=== PATIENT | male | born 1945 | race Caucasian/White ===

== ENCOUNTER 2020-09-29 18:46 | Inpatient (IN) | payer BC ==
[~2020-09-29] VITALS: Ht 175.3 cm; Wt 103.9 kg
--- NOTE | 2020-09-29 19:00 | NUR ---
Patient BIB EMS from facility SOB 91 % RA moved to room 8 place on monitor ,ekg .lab erin kapoor .
--- NOTE | 2020-09-29 19:12 | NUR ---
MOVE SHEET SUBMITTED.
--- NOTE | 2020-09-29 19:15 | NUR ---
TOOK OVER PT CARE.COOLING MEASURES INITIATED. PT ON 2L NC SAT 98%. WILL MEDICATE PT AND REASSES VITALS.
--- NOTE | 2020-09-29 19:19 | NUR ---
Report given to Kelly NOVAK
[2020-09-29] MEDS ORDERED: SERT25TA PO (19:23)
[2020-09-29] MEDS ORDERED: FERR325T23 PO (19:23)
[2020-09-29] MEDS ORDERED: DOCU-141 PO (19:23)
[2020-09-29] MEDS ORDERED: PANT40TA2 PO (19:23)
[2020-09-29] MEDS ORDERED: ATOR40TA PO (19:23)
[2020-09-29] MEDS ORDERED: MYRBETRIQ PO (19:23)
[2020-09-29] MEDS ORDERED: ASPI-1169 PO (19:23)
[2020-09-29] MEDS ORDERED: LACT1CAP71 PO (19:23)
[2020-09-29 19:24] LABS: BASOPHILS % (AUTO) 0.5 % (0.0-2.0); EOSINOPHILS % (AUTO) 0.1 % (0.0-6.0); HEMATOCRIT 37 % (39-51); HEMOGLOBIN 12.4 g/dL (13.5-17.5); LYMPHOCYTES # (AUTO) 0.5 /CMM (0.8-4.8); LYMPHOCYTES % (AUTO) 7.4 % (20.0-44.0); MEAN CORPUSCULAR HGB CONC 33 g/dl (31.0-36.0); MEAN CORPUSCULAR VOLUME 97 fL (80-96); MONOCYTES # (AUTO) 0.3 /CMM (0.1-1.30); MONOCYTES % (AUTO) 4.5 % (2.0-12.0); NEUTROPHILS # (AUTO) 6.5 /CMM (1.8-8.9); NEUTROPHILS % (AUTO) 87.5 % (43.0-81.0); PLATELET COUNT (AUTO) 109 /CMM (150-450); RED BLOOD CELL COUNT(AUTO) 3.83 MIL/uL (4.5-6.0); WHITE BLOOD COUNT (AUTO) 7.4 K/uL (4.3-11.0)
[2020-09-29] MEDS ORDERED: CEFTRIAXONE 1GM BAG (ER ONLY) 50 ML IV ONE (19:28)
[2020-09-29] MEDS ORDERED: KETOROLAC TROMETHAMINE 15 MG/ML VIAL ONE (19:28)
[2020-09-29] MEDS ORDERED: IV NS 0.9% 1,000 ML IV ONE (19:30)
[2020-09-29] MEDS ORDERED: ACETAMINOPHEN 325 MG TABLET PO ONE (19:30)
[2020-09-29] MEDS ORDERED: AZITHROMYCIN 500 MG in IV D5W 250 ML IV SCH (19:30)
[2020-09-29] MEDS ORDERED: CEFTRIAXONE 1 G in IV D5W 50 ML IV ONE (19:30)
[2020-09-29] MEDS ORDERED: KETOROLAC TROMETHAMINE INJ 30 MG/ML VIAL IV ONE (19:30)
[2020-09-29 19:33] LABS: CALCIUM, SERUM 8.5 mg/dL (8.5-10.1); CARBON DIOXIDE 25 mmol/L (21-32); CHLORIDE 101 mmol/L (98-107); CREATININE 1.3 mg/dL (0.6-1.3); GLUCOSE 127 mg/dL (74-106); POTASSIUM 3.6 mmol/L (3.5-5.1); SODIUM SERUM 138 mmol/L (136-145); UREA NITROGEN, BLOOD 26 mg/dL (7-18)
[2020-09-29 19:46] LABS: ALANINE AMINOTRANSFERASE 23 U/L (12-78); ALBUMIN 3.6 g/dL (3.4-5.0); ALKALINE PHOSPHATASE 82 U/L (46-116); ASPARTATE AMINOTRANSFERASE 32 U/L (15-37); B-TYPE NATRIURETIC PEPTIDE 360 PG/ML (0-125); BILIRUBIN,TOTAL 1.2 mg/dL (0.2-1.0); TOTAL PROTEIN, SERUM 7.6 g/dL (6.4-8.2)
[2020-09-29 19:56] LABS: D-DIMER 0.86 mg/L(FEU (0.17-0.50)
[2020-09-29] MEDS ORDERED: AZITHROMYCIN 500 MG VIAL ONE (19:56)
[2020-09-29 20:16] LABS: CREATINE KINASE, TOTAL 189 U/L (39-308); FERRITIN 1639 ng/mL (8-388)
[2020-09-29 20:18] LABS: C-REACTIVE PROTEIN 8.7 mg/dL (0.0-0.9)
--- NOTE | 2020-09-29 20:40 | NUR ---
REC'D POS COVID RESULTS
[2020-09-29] MEDS ORDERED: LIDOCAINE 2% JEL UROJET 10 ML MM ONE (20:41)
[2020-09-29] MEDS ORDERED: DEXAMETHASONE SOD PHOSPHATE 10 MG/ML VIAL IV STA (21:01)
[2020-09-29 21:06] LABS: BILIRUBIN,URINE Negative (NEGATIVE); COLOR,URINE YELLOW (YELLOW); LEUKOCYTE ESTERASE ,URINE Negative (NEGATIVE); NITRITE, URINE Negative (NEGATIVE); PH,URINE 5.5 (5.0-8.0); PROTEIN,URINE Trace mg/dl (NEGATIVE); UGLUCOSE Negative (NEGATIVE); UROBILINOGEN,URINE 0.2 EU/dL (0.2)
--- NOTE | 2020-09-29 21:16 | NUR ---
PHONE NUMBER FOR FAMILY IS . (DR. FRANCESCO DINERO)
--- NOTE | 2020-09-29 21:18 | NUR ---
PT REMAINS ON MONITOR AND PULSE OX. TEMP NOTED TO BE 98.9, VITALS STABLE. WILL CONTINUE TO MONITOR.
[2020-09-29 21:32] LABS: BACTERIA,URINE Many /HPF (None Seen); RBC,URINE 0-2 /HPF (0-2); SQUAMOUS EPITHELIAL CELL,UR Few /HPF (None Seen); WBC,URINE 0-2 /HPF (0-3)
[2020-09-29] MEDS ORDERED: DEXAMETHASONE SOD PHOSPHATE 10 MG/ML VIAL ONE (21:32)
[2020-09-29] MEDS ORDERED: ONDANSETRON HCL/PF 4 MG/2 ML VIAL IVP PRN (22:00)
[2020-09-29] MEDS ORDERED: Z GUARD REMEDY 2 OZ OINT TP PRN (22:00)
[2020-09-29] MEDS ORDERED: ZOLPIDEM TARTRATE 5 MG TABLET PO PRN (22:00)
[2020-09-29] MEDS ORDERED: HYDROCODONE/APAP 5/325MG TABLET PO PRN (22:00)
[2020-09-29] MEDS ORDERED: MAG HYDROX/AL HYDROX/SIMETH 30 ML UDC PO PRN (22:00)
[2020-09-29] MEDS ORDERED: MAGNESIUM HYDROXIDE 30 ML UDC PO PRN (22:00)
[2020-09-29] MEDS ORDERED: ACETAMINOPHEN 325 MG TABLET PO PRN (22:00)
[2020-09-29] MEDS ORDERED: ENOXAPARIN SODIUM 40 MG/0.4 ML DISP.SYRIN SQ ONE (22:35)
[2020-09-29] MEDS ORDERED: ATORVASTATIN 40 MG TABLET ONE (22:35)
[2020-09-29] MEDS: ENOXAPARIN SODIUM 40 MG/0.4 ML DISP.SYRIN SQ SCH (22:40)
[2020-09-29] MEDS: ATORVASTATIN 40 MG TABLET PO SCH (22:42)
--- NOTE | 2020-09-30 04:54 | NUR ---
BED ASSIGNMENT 203
--- NOTE | 2020-09-30 05:32 | NUR ---
SPOKE TO NIRANJAN (NEPHEW) REGARDING PLAN OF CARE.
--- NOTE | 2020-09-30 05:32 | NUR ---
REPORT GIVEN TO GOLD NOVAK FOR YNES.
[2020-09-30 05:43] LABS: BASOPHILS % (AUTO) 0.1 % (0.0-2.0); HEMATOCRIT 38 % (39-51); HEMOGLOBIN 12.3 g/dL (13.5-17.5); LYMPHOCYTES # (AUTO) 0.5 /CMM (0.8-4.8); LYMPHOCYTES % (AUTO) 6.4 % (20.0-44.0); MEAN CORPUSCULAR HGB CONC 33 g/dl (31.0-36.0); MEAN CORPUSCULAR VOLUME 97 fL (80-96); MONOCYTES # (AUTO) 0.3 /CMM (0.1-1.30); MONOCYTES % (AUTO) 3.9 % (2.0-12.0); NEUTROPHILS # (AUTO) 6.5 /CMM (1.8-8.9); NEUTROPHILS % (AUTO) 89.6 % (43.0-81.0); PLATELET COUNT (AUTO) 98 /CMM (150-450); RED BLOOD CELL COUNT(AUTO) 3.88 MIL/uL (4.5-6.0); WHITE BLOOD COUNT (AUTO) 7.3 K/uL (4.3-11.0)
--- NOTE | 2020-09-30 05:58 | NUR ---
PT TRANSFERED PER ACLS PROTOCOL
[2020-09-30 06:07] LABS: CREATININE 1.3 mg/dL (0.6-1.3); MAGNESIUM 2.5 mg/dL (1.8-2.4); PHOSPHORUS 5.9 mg/dL (2.5-4.9); POTASSIUM 4.1 mmol/L (3.5-5.1)
[2020-09-30 06:15] VITALS: BP 137/78
--- NOTE | 2020-09-30 06:20 | NUR ---
corn cutterprogramming specialist notes Received Pt from KISHORE Manrique. Pt arrived at the unit with a gurney and ACLS protocol. Pt is alert and orientedX3. Respiration on 3 L NC with O2 sat is 98%. Noted Pt's wheezing and grunting. RT at the bedside. IV site at LFA# 18 is clean, intact and flushes well. Tele monitor SR Hr at 69 bpm. VS is stable. Afebrile. Skin assessment is done and performed. Pt skin is intact. Pt's belonging was checked, signed by Pt and placed at Pt's chart. Admission orders received from Dr. Arthur. Safety precautions is maintained. Bed at low position, brakes locked, side rails upX2 and call light within reach. Will endorse to morning nurse for YNES.
--- NOTE | 2020-09-30 06:25 | NUR ---
phone circuit operator notes Informed and notified MD regarding Pt's wheezing and grunting loudly. Rt at the bedside. MD ordered albuterol 2.5 mg/neb/Q4 hr/ RT/PRN and Ipratropium neb 0.5 mg/neb/prn/ Q 4hr. Order carried out.
[2020-09-30] MEDS ORDERED: ALBUTEROL FS 2.5 MG/0.5 ML VIAL.NEB NEB PRN (06:30)
[2020-09-30] MEDS ORDERED: IPRATROPIUM NEB FS 0.5 MG/2.5 ML AMPUL.NEB NEB PRN (06:30)
--- NOTE | 2020-09-30 06:46 | NUR ---
digital designer notes Rt at the bedside giving treatment.
--- NOTE | 2020-09-30 07:03 | NUR ---
DUST COLLECTOR OPERATOR OPENING NOTE RECEIVED PT AWAKE IN BED AT THIS TIME. AOX3. PT ABLE TO VERBALIZE NEEDS. NO SOB NOTED, NO S/S OF ANY APPARENT DISTRESS NOTED, NO S/O PAIN AT THIS TIME. PT NOTED ON EXTERNAL TELE NURSE OBGYN, READING SR 67. PT NOTED ON OXYGEN @4LPM VIA NC. IV ACCESS NOTED IN LFA G#18 SL, INTACT, PATENT AND FLUSHING WELL. ASPIRATIONS AND SAFETY PRECAUTIONS IN PLACE AND MAINTAINED AT ALL TIMES. BED IN LOWEST LOCKED POSITION, SIDE RAILS UP, HOB ELEVATED, TABLE AND CALL LIGHT WITHIN REACH. WILL CONTINUE TO MONITOR.
--- NOTE | 2020-09-30 07:47 | NUR ---
loom fixer apprentice notes ordered ABG. Ordered carried out.
--- NOTE | 2020-09-30 07:50 | NUR ---
manager inventory management notes Pt is on 4 L NC with O2 sat is 95%. No S/S of distress noted.
[2020-09-30 08:00] VITALS: BP 152/79
--- NOTE | 2020-09-30 08:00 | NUR ---
specialty sales consultant closing notes Pt is resting in bed comfortably. Respiration on 4 L NC with O2 sat is 98%. No SOB. No S/S of distress noted. VS is stable. Afebrile. Tele monitor showed SR Hr at 66 bpm. Safety precautions is maintained. Bed at low position, brakes locked, side rails upX2 and call light is within reach. Will endorse to morning nurse for YNES. Addendum: 09/30/20 at 0929 by GOLD MENDEZ RN Pt is alert and orientedX3.
[2020-09-30] MEDS: DOCUSATE SODIUM 100 MG CAPSULE PO SCH ×2 (08:26→17:29)
[2020-09-30] MEDS: ASPIRIN 81 MG TAB.CHEW PO SCH (08:26)
[2020-09-30] MEDS: FERROUS SULFATE (325 MG) 325 MG/TAB TABLET PO SCH (08:26)
[2020-09-30] MEDS: PANTOPRAZOLE 40 MG TABLET.DR PO SCH (08:26)
[2020-09-30] MEDS: SERTRALINE HCL 25 MG TABLET PO SCH (08:26)
[2020-09-30] MEDS ORDERED: Medication Not On Formulary EA ([Myrbetriq] 50 MG) PO SCH (09:00)
[2020-09-30] MEDS ORDERED: DEXAMETHASONE SOD PHOSPHATE 10 MG/ML VIAL IV SCH (09:00)
[2020-09-30 09:38] LABS: ABG BASE EXCESS 0.5 mmol/L; ABG OXYGEN SATURATION 95.1 % (92.0-98.5); ABG PCO2 42.2 mmHg (35.0-45.0); ABG PH 7.398 (7.350-7.450); AaDO2 130.7 mmHg; COHb 0.3 % (0.5-1.5); MetHb 0.1 % (0.0-1.5); O2Hb 94.7 % (94.0-97.0); SITE, ABG Right Radial; VENT MODE, BG NASAL CANNULA
[2020-09-30] MEDS: methylPREDNISolone SOD SUCC 125 MG/2ML VIAL IV SCH ×3 (10:41→20:59)
--- NOTE | 2020-09-30 11:30 | NUR ---
PT NOTED SNORING WITH PERIODS OF APNEA WHILE HE NAPS DURING THE DAY. SPOKE WITH ARINA AT THE [facility], WHO UPDATED THAT, PT IS ON NOCTURNAL CPAP. DR ERICKSON MADE AWARE. PER DR ERICKSON, PT CAN NOT USE CPAP WITH COVID. WILL CONTINUE TO MONITOR AND CONTINUE WITH PLAN OF CARE
[2020-09-30 12:00] VITALS: BP 120/67
[2020-09-30] MEDS: IPRATROPIUM/ALBUTEROL INHALER IH SCH ×2 (12:50→18:52)
[2020-09-30] MEDS: OXYBUTYNIN CHLORIDE ER 5 MG TAB PO SCH (12:50)
--- NOTE | 2020-09-30 15:30 | NUR ---
NIRANJAN([phone]), PT's NEPHEW AND VALENTINO DINERO ([phone]), PT's BROTHER, CALLED AND WAS UPDATED. WILL CONTINUE TO MONITOR
[2020-09-30 16:00] VITALS: BP 108/60
[2020-09-30] MEDS: LACTOBACILLUS RHAMNOSUS GG 1 EACH CAP.SPRINK PO SCH (17:29)
--- NOTE | 2020-09-30 18:58 | NUR ---
RN CLOSING NOTES PT AWAKE IN BED AT THIS TIME. PT REMAINED STABLE THROUGHOUT SHIFT. PT ON 2LPM VIA NC SATURATION @ 96% AT THIS TIME. ALL CARE, NEED, MEDICATIONS AND TREATMENT ADMINISTERED ANTICIPATED PER ORDER. PT KEPT CLEAN AND DRY. LINEN CHANGED AND KEPT CLEAN. PT ASSISTED WITH URINAL. ASPIRATION, RESPIRATION AND SAFETY PRECAUTION IN PLACE AND MAINTAINED AT ALL TIMES. BED IN LOWEST LOCKED POSITION, HOB ELEVATED, SIDE RAILS UP X 2, CALL LIGHT AND TABLE WITHIN REACH. ENDORSED TO GROCERY CARRIER NURSE FOR YNES
--- NOTE | 2020-09-30 19:53 | NUR ---
RN OPENING NOTES PT RECEIVED BEDSIDE. ALERT AND ORIENTED X3. COLOMBIAN SPEAKING. ABLE TO MAKE NEEDS KNOWN. PT ON 2L NASAL CANNULA. TOLERATING WELL. NO SOB NOTED AT THIS TIME. WILL CONTINUE TO MONITOR O2 SAT. IV ACCESS LFA #18. SALINE LOCK. FLUSHING WELL, INTACT, PATENT. NO OCCLUSIONS, NO INFILTRATIONS NOTED AT THIS TIME. ISOLATION PRECAUTIONS IN PLACE. SAFETY PRECAUTIONS IN PLACE. BED LOCK, BED ALARM ON, CALL LIGHT WITHIN REACH. WILL CONTINUE PLAN OF CARE.
[2020-09-30 20:00] VITALS: BP 131/74
[2020-09-30] MEDS: ENOXAPARIN SODIUM 40 MG/0.4 ML DISP.SYRIN SQ SCH (21:00)
[2020-09-30] MEDS: ATORVASTATIN 40 MG TABLET PO SCH (21:14)
[2020-10-01] VITALS (7 sets, daily range): BP systolic 112–136; BP diastolic 51–72
[2020-10-01] MEDS: IPRATROPIUM/ALBUTEROL INHALER IH SCH ×5 (00:04→23:53)
[2020-10-01] MEDS: methylPREDNISolone SOD SUCC 125 MG/2ML VIAL IV SCH ×3 (05:22→21:08)
[2020-10-01 06:21] LABS: CALCIUM, SERUM 8.3 mg/dL (8.5-10.1); CREATININE 1.2 mg/dL (0.6-1.3); POTASSIUM 3.6 mmol/L (3.5-5.1)
[2020-10-01 06:23] LABS: BASOPHILS % (AUTO) 0.3 % (0.0-2.0); HEMATOCRIT 35 % (39-51); HEMOGLOBIN 11.5 g/dL (13.5-17.5); LYMPHOCYTES # (AUTO) 0.4 /CMM (0.8-4.8); LYMPHOCYTES % (AUTO) 3.4 % (20.0-44.0); MEAN CORPUSCULAR HGB CONC 33 g/dl (31.0-36.0); MEAN CORPUSCULAR VOLUME 96 fL (80-96); MONOCYTES # (AUTO) 0.4 /CMM (0.1-1.30); MONOCYTES % (AUTO) 3.3 % (2.0-12.0); NEUTROPHILS # (AUTO) 11.7 /CMM (1.8-8.9); PLATELET COUNT (AUTO) 105 /CMM (150-450); RED BLOOD CELL COUNT(AUTO) 3.61 MIL/uL (4.5-6.0); WHITE BLOOD COUNT (AUTO) 12.6 K/uL (4.3-11.0)
--- NOTE | 2020-10-01 06:55 | NUR ---
RN CLOSING NOTES PT LAYING IN BED. ALERT AND ORIENTED X3. WITH PERIODS OF CONFUSION. ABLE TO REORIENT. ITALIAN SPEAKING. ABLE TO MAKE NEEDS KNOWN. PT 2L NASAL CANNULA. TOLERATING WELL. NO SOB NOTED AT THIS TIME. WILL CONTINUE TO MONITOR O2 SAT. IV ACCESS LFA #18. SALINE LOCK. FLUSHING WELL, INTACT, PATENT. NO OCCLUSIONS, NO INFILTRATIONS NOTED AT THIS TIME. PT COMPLIANT WITH MEDICATIONS. PT HAD 2 BOWEL MOVEMENTS. ISOLATION PRECAUTIONS IN PLACE. SAFETY PRECAUTIONS IN PLACE. BED LOCK, BED ALARM ON, CALL LIGHT WITHIN REACH. WILL ENDORSE TO UPCOMING SHIFT. WILL CONTINUE PLAN OF CARE.
--- NOTE | 2020-10-01 08:08 | NUR ---
STAPLER HAND NOTE PATIENT IN BED RESTING COMFORTABLY. PATIENT IN NO ACUTE DISTRESS. NO SOB NOTED. PATIENT BREATHING IS EVEN AND UNLABORED. PATIENT SAFETY PRECAUTIONS IN PLACE. ISOLATION PRECAUTIONS IN PLACE. PATIENT BED IS LOCKED AND IN LOWEST POSITION. CALL LIGHT WITHIN REACH. WILL CONTINUE TO MONITOR.
[2020-10-01] MEDS: DOCUSATE SODIUM 100 MG CAPSULE PO SCH ×2 (08:59→17:15)
[2020-10-01] MEDS: ASPIRIN 81 MG TAB.CHEW PO SCH (08:59)
[2020-10-01] MEDS: OXYBUTYNIN CHLORIDE ER 5 MG TAB PO SCH (08:59)
[2020-10-01] MEDS: SERTRALINE HCL 25 MG TABLET PO SCH (08:59)
[2020-10-01] MEDS: FERROUS SULFATE (325 MG) 325 MG/TAB TABLET PO SCH (08:59)
[2020-10-01] MEDS: PANTOPRAZOLE 40 MG TABLET.DR PO SCH (09:00)
[2020-10-01] MEDS: LACTOBACILLUS RHAMNOSUS GG 1 EACH CAP.SPRINK PO SCH (17:15)
--- NOTE | 2020-10-01 18:22 | NUR ---
MS RN NOTE PATIENT IN BED RESTING COMFORTABLY. PATIENT IN NO ACUTE DISTRESS. NO SOB NOTED. PATIENT BREATHING IS EVEN AND UNLABORED. PATIENT KEPT CLEAN, DRY, AND COMFORTABLE THROUGHOUT SHIFT. NEEDS AND CONCERNS ADDRESSED. PATIENT SAFETY PRECAUTIONS IN PLACE. ISOLATION PRECAUTIONS IN PLACE. PATIENT BED IS LOCKED AND IN LOWEST POSITION. CALL LIGHT WITHIN REACH. WILL ENDORSE CARE TO PM SHIFT FOR YNES.
--- NOTE | 2020-10-01 19:48 | NUR ---
MS RN OPENING NOTES PT RECEIVED BEDSIDE. PT ALERT AND ORIENTED x2. PT PRESENTS PERIODS OF CONFUSION. WILL PERFORM NEURO CHECKS Q2H. PT ON 3L NASAL CANNULA. TOLERATING WELL. NO SOB NOTED AT THIS TIME. NO COMPLAINTS OF BREATHING, PAIN AT THIS TIME. WILL PERFORM BREATHING TX Q4H IF NEEDED. IV ACCESS LFA #20. INTACT, PATENT, FLUSHING WELL. NO OCCLUSIONS, NO INFILTRATIONS. ISOLATION PRECAUTIONS IN PLACE. SAFETY PRECAUTIONS IN PLACE. CALL LIGHT WITHIN REACH. BED LOWEST POSITION. BED ALARM ON. SEMI- HIGH FOWLERS. O2 MONITOR ATTACHED TO PT. WILL CONTINUE TO MONITOR PT. WILL CONTINUE PLAN OF CARE.
[2020-10-01] MEDS: ATORVASTATIN 40 MG TABLET PO SCH (21:07)
[2020-10-01] MEDS: ENOXAPARIN SODIUM 40 MG/0.4 ML DISP.SYRIN SQ SCH (21:09)
[2020-10-02] MEDS: methylPREDNISolone SOD SUCC 125 MG/2ML VIAL IV SCH ×3 (05:23→21:26)
[2020-10-02] MEDS: IPRATROPIUM/ALBUTEROL INHALER IH SCH ×3 (05:31→17:03)
[2020-10-02 06:24] LABS: HEMATOCRIT 36 % (39-51); HEMOGLOBIN 11.9 g/dL (13.5-17.5); LYMPHOCYTES # (AUTO) 0.5 /CMM (0.8-4.8); LYMPHOCYTES % (AUTO) 3.9 % (20.0-44.0); MEAN CORPUSCULAR HGB CONC 33 g/dl (31.0-36.0); MEAN CORPUSCULAR VOLUME 95 fL (80-96); MONOCYTES # (AUTO) 0.4 /CMM (0.1-1.30); MONOCYTES % (AUTO) 3.3 % (2.0-12.0); NEUTROPHILS # (AUTO) 12.6 /CMM (1.8-8.9); NEUTROPHILS % (AUTO) 92.8 % (43.0-81.0); PLATELET COUNT (AUTO) 110 /CMM (150-450); RED BLOOD CELL COUNT(AUTO) 3.76 MIL/uL (4.5-6.0); WHITE BLOOD COUNT (AUTO) 13.6 K/uL (4.3-11.0)
[2020-10-02 07:01] LABS: CALCIUM, SERUM 8.4 mg/dL (8.5-10.1); CREATININE 1.1 mg/dL (0.6-1.3); MAGNESIUM 2.6 mg/dL (1.8-2.4); PHOSPHORUS 3.6 mg/dL (2.5-4.9); POTASSIUM 3.7 mmol/L (3.5-5.1)
--- NOTE | 2020-10-02 07:28 | NUR ---
RN CLOSING NOTES PT LAYING IN BED. ALERT AND ORIENTED X2. SPANISH SPEAKING. ABLE TO MAKE NEEDS KNOWN. PT HAS PERIODS OF CONFUSION. PT ON 2L NASAL CANNULA. TOLERATING WELL. NO SOB NOTED AT THIS TIME. WILL CONTINUE TO MONITOR O2 SAT. IV ACCESS LFA #18. SALINE LOCK. FLUSHING WELL, INTACT, PATENT. NO OCCLUSIONS, NO INFILTRATIONS NOTED AT THIS TIME. ISOLATION PRECAUTIONS IN PLACE. SAFETY PRECAUTIONS IN PLACE. BED LOCK, BED ALARM ON, CALL LIGHT WITHIN REACH. WILL ENDORSE TO NEXT SHIFT. WILL CONTINUE PLAN OF CARE.
--- NOTE | 2020-10-02 07:30 | NUR ---
MS/RN OPENING NOTE Received patient awake in bed, A&O x 3. No complaints of pain/discomfort at this time. Breathing even and non-labored on 2L oxygen via NC, no SOB noted, saturating at 92%. No respiratory or cardiac distress noted. IV access noted on LFA #20g, patent and intact, and flushing well. Bed locked to its lowest position, side rails x 2 up, call light in hand. Will continue with current medical management.
[2020-10-02 08:00] VITALS: BP 126/80
[2020-10-02] MEDS: OXYBUTYNIN CHLORIDE ER 5 MG TAB PO SCH (08:19)
[2020-10-02] MEDS: SERTRALINE HCL 25 MG TABLET PO SCH (08:19)
[2020-10-02] MEDS: PANTOPRAZOLE 40 MG TABLET.DR PO SCH (08:19)
[2020-10-02] MEDS: ASPIRIN 81 MG TAB.CHEW PO SCH (08:19)
[2020-10-02] MEDS: DOCUSATE SODIUM 100 MG CAPSULE PO SCH ×2 (08:20→17:03)
[2020-10-02] MEDS: FERROUS SULFATE (325 MG) 325 MG/TAB TABLET PO SCH (08:20)
--- NOTE | 2020-10-02 09:30 | NUR ---
MS/RN NOTE Patient's nephew, Dr. Doyle, requests to speak with the rn acls. Notified Dr. Jacobson.
[2020-10-02 16:00] VITALS: BP 118/69
--- NOTE | 2020-10-02 16:00 | NUR ---
MS/RN NOTE Patient's nephew, Dr. Doyle, requests to speak with the patient's hospitalist. Notified Dr. Chacon.
[2020-10-02] MEDS: LACTOBACILLUS RHAMNOSUS GG 1 EACH CAP.SPRINK PO SCH (17:03)
--- NOTE | 2020-10-02 18:52 | NUR ---
MS/RN CLOSING NOTE Patient resting in bed, A&O x 3, easily arousable to tactile and verbal stimulation. All needs met and attended to. No complaints of pain/discomfort at this time. Breathing even and non-labored on 2L oxygen via NC, no SOB noted, saturating at 94-97%. No respiratory or cardiac distress noted. IV access noted on LFA #20g, patent and intact, and flushing well. Fall precautions maintained. Will endorse to shift lab technician nurse.
[2020-10-02 20:00] VITALS: BP_SYST 155; BP_SYST 157; BP_DIAS 92
--- NOTE | 2020-10-02 20:00 | NUR ---
RN NOTE RECEIVED PT IN BED A/A/O X3. PT IS ON 2 L VIA NC SATING 93%, PT HAS UNLABORED BREATHING. SAFETY MEASURES IN PLACE
[2020-10-02] MEDS: ENOXAPARIN SODIUM 40 MG/0.4 ML DISP.SYRIN SQ SCH (21:25)
[2020-10-02] MEDS: ATORVASTATIN 40 MG TABLET PO SCH (21:26)
[2020-10-03] MEDS: IPRATROPIUM/ALBUTEROL INHALER IH SCH ×4 (00:13→17:16)
[2020-10-03] MEDS: methylPREDNISolone SOD SUCC 125 MG/2ML VIAL IV SCH ×3 (05:51→21:00)
[2020-10-03 07:24] LABS: BASOPHILS % (AUTO) 0.1 % (0.0-2.0); HEMATOCRIT 37 % (39-51); HEMOGLOBIN 12.2 g/dL (13.5-17.5); LYMPHOCYTES # (AUTO) 0.3 /CMM (0.8-4.8); LYMPHOCYTES % (AUTO) 2.1 % (20.0-44.0); MEAN CORPUSCULAR HGB CONC 33 g/dl (31.0-36.0); MEAN CORPUSCULAR VOLUME 95 fL (80-96); MONOCYTES # (AUTO) 0.3 /CMM (0.1-1.30); MONOCYTES % (AUTO) 1.7 % (2.0-12.0); NEUTROPHILS # (AUTO) 14.8 /CMM (1.8-8.9); NEUTROPHILS % (AUTO) 96.1 % (43.0-81.0); PLATELET COUNT (AUTO) 119 /CMM (150-450); WHITE BLOOD COUNT (AUTO) 15.4 K/uL (4.3-11.0)
--- NOTE | 2020-10-03 07:37 | NUR ---
RN NOTE PT REMAINED STABLE DURING MY SHIFT NO ACUTE CHANGES REPORT GIVEN TO INCOMING PT FOR YNES.
[2020-10-03] MEDS: PANTOPRAZOLE 40 MG TABLET.DR PO SCH (07:59)
[2020-10-03 08:00] VITALS: BP 131/69
--- NOTE | 2020-10-03 08:00 | NUR ---
RN Opening note Received patient in bed, awaken able to responds all stimuli, Pt does no c/o pain or distress. Skin is warm to touch keep clean/dry intact IV site, respiratory even and unlabored with oxygen at 2L. Kept locked bed with elevated HOB for aspiration precaution and ensure airway and lowest bed foe safety. Call light within reach, will continue to monitor.
[2020-10-03 08:10] LABS: CALCIUM, SERUM 8.5 mg/dL (8.5-10.1); POTASSIUM 3.4 mmol/L (3.5-5.1)
[2020-10-03] MEDS: DOCUSATE SODIUM 100 MG CAPSULE PO SCH ×2 (08:51→16:45)
[2020-10-03] MEDS: ASPIRIN 81 MG TAB.CHEW PO SCH (08:54)
[2020-10-03] MEDS: SERTRALINE HCL 25 MG TABLET PO SCH (08:54)
[2020-10-03] MEDS: FERROUS SULFATE (325 MG) 325 MG/TAB TABLET PO SCH (08:55)
[2020-10-03] MEDS: OXYBUTYNIN CHLORIDE ER 5 MG TAB PO SCH (08:55)
[2020-10-03] MEDS ORDERED: POTASSIUM CHLORIDE 20 MEQ TAB.PRT.SR PO SCH (10:00)
[2020-10-03] MEDS: LACTOBACILLUS RHAMNOSUS GG 1 EACH CAP.SPRINK PO SCH (17:16)
--- NOTE | 2020-10-03 17:38 | NUR ---
RN closing Patient in bed resting, does no appears distress or discomfort. Skin is warm to touch, keep clean/dry, intact IV site on left forearm 22g with SL. Respiratory even and unlabored with oxygen at 2L O2sat 98%. Kept elevated HOB for ensure air way and aspiration precaution and lowest bed for safety. Call light within reach, will endorse shift supervisor
[2020-10-03 18:48] VITALS: BP 118/88
--- NOTE | 2020-10-03 19:58 | NUR ---
RN NOTES RN NOTES RECEIVED PT IN BED, VERBALLY RESPONSIVE. ON O2 2L VIA NC. O2 SAT AT 95 %. NO DISTRESS NOTED. DENIES ANY SOB/PAIN AT THIS TIME. PTS IV ON LFA PATENT AND INTACT, FLUSHES WELL. ALL SAFETY MEASURES IMPLEMENTED PER PROTOCOL, CALL LIGHT WITHIN REACH. BED LOCKED IN LOWEST POSITION. CALL LIGHT WITHIN REACH. SIDE RAILS UP. BED ALARM ON.
[2020-10-03 20:00] VITALS: BP 146/78
--- NOTE | 2020-10-03 20:41 | NUR ---
RN NOTE LAB CALLED, PT PRELIMINARY BLOOD CULTURE IS GRAM + COCCI IN PAIRS AND CHAINS. WINDOW SHADE CUTTER DENISE NOTIFIED. NO NEW ORDER MADE. PER WINDOW SHADE CUTTER WILL WAIT FOR THE FINAL.
[2020-10-03] MEDS: ENOXAPARIN SODIUM 40 MG/0.4 ML DISP.SYRIN SQ SCH (21:01)
[2020-10-03] MEDS: ATORVASTATIN 40 MG TABLET PO SCH (21:02)
[2020-10-03 21:47] VITALS: BP 146/78
[2020-10-04] MEDS: IPRATROPIUM/ALBUTEROL INHALER IH SCH ×3 (00:44→12:07)
[2020-10-04] MEDS: methylPREDNISolone SOD SUCC 125 MG/2ML VIAL IV SCH ×2 (04:46→13:39)
[2020-10-04 05:19] VITALS: BP 141/64
[2020-10-04] MEDS: PANTOPRAZOLE 40 MG TABLET.DR PO SCH (06:53)
--- NOTE | 2020-10-04 07:00 | NUR ---
RN CLOSING NOTES PT REMAINS IN BED WITH EPISODE OF CONFUSION, REORIENTED TO PLACE AND SITUATION. PT CONTINUE ON O2 AT 2LPM VIA NC, TOLERATING. NO RESP DISTRESS NOTED. PT ABLE TO USE URINAL. ATTENDED TO NEEDS. KEPT COMFORTABLE. IV REMAIN INTACT AND PATENT. BED LOCKED IN LOWEST POSITION. SIDE RAILS UP. CALL LIGHT WITHIN REACH AT ALL TIMES. WILL ENDORSE TO NEXT SHIFT NURSE FOR YNES.
[2020-10-04 07:07] LABS: CALCIUM, SERUM 8.8 mg/dL (8.5-10.1); POTASSIUM 3.9 mmol/L (3.5-5.1)
--- NOTE | 2020-10-04 07:16 | NUR ---
MS RN OPENING NOTES RECEIVED PATIENT IN BED, AWAKE, A/O X3. PATIENT ON OXYGEN THERAPY AT 2 LPM VIA NASAL CANULA; BREATHING EVEN NO SOB NOTED AT THIS TIMER. NO COMPLAINS OF PAIN AT THIS MOMENT. LFA IV ACCESS G #20 SL. SAFETY PRECAUTIONS IN PLACE; BED IN LOW POSITION AND LOCKED, RAILS UP X3, CALL LIGHT WITHIN REACH. WILL CONTINUE TO MONITOR PATIENT.
[2020-10-04 08:00] VITALS: BP 150/70
[2020-10-04] MEDS: ASPIRIN 81 MG TAB.CHEW PO SCH (08:25)
[2020-10-04] MEDS: FERROUS SULFATE (325 MG) 325 MG/TAB TABLET PO SCH (08:25)
[2020-10-04] MEDS: SERTRALINE HCL 25 MG TABLET PO SCH (08:25)
[2020-10-04] MEDS: OXYBUTYNIN CHLORIDE ER 5 MG TAB PO SCH (08:25)
[2020-10-04] MEDS: DOCUSATE SODIUM 100 MG CAPSULE PO SCH (08:25)
[2020-10-04] MEDS ORDERED: METH4TAB3 PO (08:59)
--- NOTE | 2020-10-04 15:48 | NUR ---
DISCHARGE NOTES PATIENT DISCHARGED TO [facility] IN MEDICALLY STABLE CONDITION. PATIENT ON OXYGEN THERAPY AT 2 LPM VIA NASAL CANNULA. VITAL SIGNS TAKEN AND WITHIN NORMAL LIMITS. ALL DISCHARGE PAPERWORK READY AND SIGNED BY PATIENT. BELONGINGS ACCOUNTED FOR AND SIGNED BY PATIENT WELL. IV ACCESS WAS REMOVED PRIOR TO LEAVING THE UNIT. FACILITY CALLED AND REPORT GIVEN TO NURSE MORELOS. PATIENT WAS PICKED UP BY 2 floorman. PATIENT LEFT THE FLOOR VIA GURNEY AT 1535.
== END 2020-10-04 15:48 | DRG 177 ==
LOC: ER 18:51 → TRANSITION 20:19 → TELE2 09-30 04:55 → MEDSG2 10-01 11:21
PROVIDERS: ADMIT Family Medicine; ATTEND Internal Medicine
DX: U07.1 COVID-19 (principal); J12.82 Pneumonia due to coronavirus disease 2019; J96.01 Acute respiratory failure with hypoxia; N17.0 Acute kidney failure with tubular necrosis; J44.0 Chronic obstructive pulmonary disease with (acute) lower respiratory infection; J44.1 Chronic obstructive pulmonary disease with (acute) exacerbation; G93.40 Encephalopathy, unspecified; E78.5 Hyperlipidemia, unspecified; F32.9 Major depressive disorder, single episode, unspecified; K21.9 Gastro-esophageal reflux disease without esophagitis; F41.9 Anxiety disorder, unspecified; D69.6 Thrombocytopenia, unspecified; D50.9 Iron deficiency anemia, unspecified; Z87.891 Personal history of nicotine dependence; D63.8 Anemia in other chronic diseases classified elsewhere; I12.9 Hypertensive chronic kidney disease with stage 1 through stage 4 chronic kidney disease, or unspecified chronic kidney disease; N18.9 Chronic kidney disease, unspecified; E66.9 Obesity, unspecified; Z68.33 Body mass index [BMI] 33.0-33.9, adult; G47.33 Obstructive sleep apnea (adult) (pediatric); F03.90 Unspecified dementia, unspecified severity, without behavioral disturbance, psychotic disturbance, mood disturbance, and anxiety
CPT/HCPCS: 36415; 36600; 71045-TC; 71250-TC; 80048-TC; 80053-TC; 80061-TC; 81001; 82550-TC; 82728-TC; 82803-TC; 83605-TC; 83615-TC; 83735-TC; 83880; 84100-TC; 84484-TC; 85025-TC; 85378-TC; 85730-TC; 86140-TC; 87040-TC; 87081-TC; 87086-TC; 93307-TC; 97112-TC; 97116-TC; 97530-TC; G0378; J0456; J0696; J1100; J1650; J1885; J2405; J2930; J3490; J7030; J7060; U0003